=== PATIENT | male | born 1930 | race Caucasian/White ===

== ENCOUNTER → 2019-04-15 | Outpatient (CLI) | payer MEDICARE | LOC: M.RAD 14:29 | DX: M47.812 Spondylosis without myelopathy or radiculopathy, cervical region (principal); M25.711 Osteophyte, right shoulder; M43.12 Spondylolisthesis, cervical region ==

== ENCOUNTER 2020-02-21 11:29 | Inpatient (IN) | payer MEDICARE ==
[2020-02-21] VITALS (8 sets, daily range): BP systolic 100–169; BP diastolic 35–78
[~2020-02-21] VITALS: Ht 172.7 cm; Wt 64.6 kg
--- NOTE | ~2020-02-21 | CON ---
[address] [address] CONSULTATION Name: ANABELLA CARLSON Room: [address] IN [place].#: [id number] Admission: 02/21/20 Attend Phys: Fidel Finn Discharge: Date of : [birth year] Report #: [id number] THIS REPORT FOR: cc: Gian Suárez MD, Dean L. MD ~ Artie Bolanos MD DATE OF SERVICE: 02/24/2020 REQUESTING PHYSICIAN: Jagdish Jacques MD REASON FOR CONSULTATION: Acute kidney injury. HISTORY OF PRESENT ILLNESS: The patient is a very pleasant 89-year-old gentleman who was admitted to the hospital on 02/21/2020 with chief complaints of altered mental status. The patient was brought to the hospital with his . He was also was found to have melena, was diagnosed with a GI bleed, was seen by image consultant and GI had a procedure done, DrMelecio ____ performed cautery and placement of hemostatic clips in his duodenal bulb. His creatinine on admission was 1.4, went up to 1.5 yesterday, down to 1.3 now. PAST MEDICAL HISTORY: Significant for; 1. Chronic kidney disease stage 3. 2. History of anemia. 3. Gastrointestinal bleed. 4. Hypercholesterolemia. 5. Diabetes mellitus type 2. FAMILY HISTORY: Noncontributory. SOCIAL HISTORY: No tobacco, no alcohol abuse. REVIEW OF SYSTEMS: The patient wants to go home. No chest pain, no shortness of breath, no nausea, and no vomiting. His altered mental status, resolved. PHYSICAL EXAMINATION: GENERAL: Awake, alert, oriented, no acute distress. VITAL SIGNS: Stable. HEENT: Pupils are round. NECK: Supple. LUNGS: Clear. ASSESSMENT: 1. Chronic kidney disease, stage 3 with mild acute component [place] [address] CONSULTATION Name: ANABELLA CARLSON Room: [address]#: [id number] Admission: 02/21/20 Attend Phys: Fidel Finn Discharge: Date of : [birth year] Report #: [id number] 2. Gastrointestinal bleed, hemorrhage was stopped as I mentioned earlier. 3. Diabetes mellitus type 2. 4. General atherosclerosis. PLAN: There is nothing acute can offer here, but just keep the patient euvolemic and keeping away from JAYNA inhibitors and angiotensin receptor blockers. He will need to have a followup with us for chronic kidney disease, stage 3. I would like him to come and see me in office in 3 weeks after discharge. I will sign off. By: 1154 [id number] Bolanos MD /nt
[2020-02-21] MEDS ORDERED: FOSAMAX 70 MG T70 MG PO (11:45)
[2020-02-21] MEDS ORDERED: LIPITOR40 MG PO (11:46)
[2020-02-21] MEDS ORDERED: ASA81BEC PO (11:46)
[2020-02-21] MEDS ORDERED: CARBIDOPA/LEVODOPA PO (11:48)
[2020-02-21] MEDS ORDERED: CARB PO (11:49)
[2020-02-21] MEDS ORDERED: LEVO PO (11:49)
[2020-02-21] MEDS ORDERED: CARVEDILOL12.5 MG PO (11:49)
[2020-02-21] MEDS ORDERED: PROSCAR 5MG TABL5 M1 PO (11:50)
[2020-02-21] MEDS ORDERED: ARICEPT10 M1 PO (11:50)
[2020-02-21] MEDS ORDERED: NEURONTIN300 MG PO (11:50)
[2020-02-21] MEDS ORDERED: ALLEGRA ALLERG180 MG PO (11:51)
[2020-02-21] MEDS ORDERED: TAMSULOSIN HCL0.4 MG PO (11:51)
[2020-02-21] MEDS ORDERED: ZESTRIL5 MG PO (11:51)
[2020-02-21] MEDS ORDERED: METFORMIN HCL500 M3 PO (11:51)
[2020-02-21 11:56] LABS: MCH 31.1 pg (26.0-34.0); MCHC 34.1 g/dL (28.0-37.0); MPV 8.6 fl. (7.2-11.1); NUCLEATED RBCS 0 /100WBC; PLATELET COUNT* 151 thou/uL (150-400); RBC 1.86 mil/uL (4.50-6.00); RDW-CV 15.2 % (10.5-14.5); WBC 10.5 thou/uL (4.0-11.0)
[2020-02-21 12:06] LABS: CALCIUM 7.5 mg/dL (8.5-10.1); CREATININE 1.4 mg/dL (0.6-1.3); POTASSIUM 4.9 mmol/L (3.5-5.1)
[2020-02-21 12:08] LABS: HEMATOCRIT 16.9 % (42.0-52.0); HEMOGLOBIN 5.8 gm/dL (14.0-18.0)
[2020-02-21 12:09] LABS: APTT 21.1 Seconds (25.0-31.3); INR 1.2; PROTIME 12.6 Seconds (9.20-11.50)
[2020-02-21 12:19] LABS: ALBUMIN 2.6 g/dL (3.4-5.0); CK-MB MASS 2.2 ng/mL (<0.5-3.6); TOTAL BILIRUBIN 0.7 mg/dL (<0.1-1.0); TOTAL PROTEIN 4.6 g/dL (6.4-8.2)
[2020-02-21 12:21] LABS: ABSOLUTE LYMPHOCYTES 1.3 thou/uL (0.8-5.3); ABSOLUTE MONOCYTES 0.3 thou/uL (0.0-1.2); ABSOLUTE NEUTROPHILS 8.9 thou/uL (1.6-8.1); PLATELET ESTIMATE ADEQUATE
--- NOTE | 2020-02-21 13:41 | EKG ---
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: CCD : 1930 Requested By: Shubham Iraheta Order Number: [id number] MD: Milind León Measurements Intervals [place] Rate: 82 P: 50 WI: 149 QRS: 54 QRSD: 102 T: 59 QT: 397 QTc: 464 Interpretive Statements Sinus rhythm RSR' in V1 or V2, probably normal variant Probable left ventricular hypertrophy Compared to ECG 08/27/2010 16:14:10 RSR' in V1 or V2 now present Electronically Signed On 02-21-2020 13:41:34 CORONARY CARE UNIT NURSE by Milind León [email or web address] <ELECTRONICALLY SIGNED> By: Milind León MD, FACC 02/21/20 1341 1136 1136 Milind León MD, FACC /EPI
[2020-02-21 18:56] LABS: HEMATOCRIT 18.5 % (42.0-52.0); HEMOGLOBIN 6.1 gm/dL (14.0-18.0)
[2020-02-21 19:05] LABS: ALBUMIN 2.5 g/dL (3.4-5.0); CALCIUM 7.2 mg/dL (8.5-10.1); CREATININE 1.3 mg/dL (0.6-1.3); MAGNESIUM 1.3 mg/dL (1.8-2.4); POTASSIUM 4.2 mmol/L (3.5-5.1); TOTAL PROTEIN 4.6 g/dL (6.4-8.2)
[2020-02-21 20:58] LABS: BE -5.4 mmol/L (-2 to +3); PCO2 25.8 mmHg (35.0-45.0)
[2020-02-21 21:02] LABS: PO2 330.2 mmHg (75.0-100.0)
[2020-02-22] VITALS (13 sets, daily range): BP systolic 77–163; BP diastolic 30–70
[2020-02-22 01:15] LABS: HEMOGLOBIN 9.5 gm/dL (14.0-18.0)
[2020-02-22 04:21] LABS: HEMATOCRIT 23.9 % (42.0-52.0); HEMOGLOBIN 8.1 gm/dL (14.0-18.0)
[2020-02-22 05:14] LABS: HEMOGLOBIN 7.3 gm/dL (14.0-18.0)
[2020-02-22 17:23] LABS: HEMATOCRIT 21.1 % (42.0-52.0); MCH 30.1 pg (26.0-34.0); MCHC 33.9 g/dL (28.0-37.0); MCV 88.8 fL (80.0-100.0); MPV 9.5 fl. (7.2-11.1); RBC 2.37 mil/uL (4.50-6.00); WBC 14.8 thou/uL (4.0-11.0)
[2020-02-22 17:26] LABS: HEMOGLOBIN 7.1 gm/dL (14.0-18.0)
[2020-02-23 04:08] LABS: HEMATOCRIT 20.6 % (42.0-52.0); MCH 28.6 pg (26.0-34.0); MCV 86.5 fL (80.0-100.0); MPV 9.5 fl. (7.2-11.1); RBC 2.38 mil/uL (4.50-6.00); RDW-CV 17.1 % (10.5-14.5); WBC 13.8 thou/uL (4.0-11.0)
[2020-02-23 04:29] LABS: HEMOGLOBIN 6.8 gm/dL (14.0-18.0)
[2020-02-23 04:32] LABS: ALBUMIN 1.8 g/dL (3.4-5.0); CALCIUM 6.7 mg/dL (8.5-10.1); CREATININE 1.5 mg/dL (0.6-1.3); MAGNESIUM 2.7 mg/dL (1.8-2.4); TOTAL BILIRUBIN 0.4 mg/dL (<0.1-1.0); TOTAL PROTEIN 3.4 g/dL (6.4-8.2)
[2020-02-23 05:00] VITALS: BP 127/56; BP 131/55; BP 132/51; BP 135/57
[2020-02-23 08:00] VITALS: BP 132/51
[2020-02-23 12:26] VITALS: BP 120/49
[2020-02-23 16:39] VITALS: BP 128/58
[2020-02-23 19:30] VITALS: BP 116/49
[2020-02-23 22:23] LABS: URINE BILIRUBIN NEGATIVE (Negative); URINE BLOOD 2+ (Negative); URINE CLARITY CLEAR; URINE COLOR YELLOW; URINE GLUCOSE-RANDOM NEGATIVE (Negative); URINE KETONES NEGATIVE (Negative); URINE LEUKOCYTES 1+ (Negative); URINE NITRITE NEGATIVE (Negative); URINE PROTEIN NEGATIVE (Negative); URINE UROBILINOGEN 0.2 E.U./dl (0.2-1.0)
[2020-02-23 22:31] LABS: BACTERIA 1-9 Few /HPF (None Seen); CASTS None Seen /LPF (None Seen); CRYSTALS None Seen /LPF (None Seen); MUCUS None Seen strn/LPF (None Seen); SQUAMOUS NONE SEEN /LPF (0-3); URINE WBC 6-15 Few /HPF (0-5)
[2020-02-24] VITALS: BP 113/46
[2020-02-24 04:00] VITALS: BP 102/52
[2020-02-24 04:05] LABS: HEMATOCRIT 24.2 % (42.0-52.0); HEMOGLOBIN 8.2 gm/dL (14.0-18.0); MCH 28.1 pg (26.0-34.0); MCV 82.8 fL (80.0-100.0); MPV 9.5 fl. (7.2-11.1); RBC 2.93 mil/uL (4.50-6.00); RDW-CV 19.2 % (10.5-14.5); WBC 13.1 thou/uL (4.0-11.0)
[2020-02-24 04:48] LABS: ALBUMIN 1.9 g/dL (3.4-5.0); CALCIUM 6.8 mg/dL (8.5-10.1); CREATININE 1.3 mg/dL (0.6-1.3); POTASSIUM 3.2 mmol/L (3.5-5.1); TOTAL BILIRUBIN 0.5 mg/dL (<0.1-1.0); TOTAL PROTEIN 3.8 g/dL (6.4-8.2)
[2020-02-24 08:00] VITALS: BP 147/58
[2020-02-24 12:49] VITALS: BP 132/50
[2020-02-24 17:07] VITALS: BP 123/49
[2020-02-24 20:24] VITALS: BP 135/84
[2020-02-25] VITALS (7 sets, daily range): BP systolic 96–132; BP diastolic 41–56
[2020-02-25 04:52] LABS: HEMATOCRIT 23.3 % (42.0-52.0); HEMOGLOBIN 7.9 gm/dL (14.0-18.0); MCHC 33.7 g/dL (28.0-37.0); MCV 83.2 fL (80.0-100.0); MPV 9.4 fl. (7.2-11.1); RBC 2.81 mil/uL (4.50-6.00); RDW-CV 18.4 % (10.5-14.5); WBC 11.6 thou/uL (4.0-11.0)
[2020-02-25 05:04] LABS: CALCIUM 7.1 mg/dL (8.5-10.1); CREATININE 1.3 mg/dL (0.6-1.3); MAGNESIUM 2.1 mg/dL (1.8-2.4)
[2020-02-25 05:26] LABS: POTASSIUM 2.5 mmol/L (3.5-5.1)
[2020-02-26 00:30] VITALS: BP 96/49
[2020-02-26 04:00] VITALS: BP 141/42
[2020-02-26 10:17] LABS: ABSOLUTE EOSINOPHILS 0.6 thou/uL (0.0-0.7); ABSOLUTE LYMPHOCYTES 1.5 thou/uL (0.8-5.3); ABSOLUTE NEUTROPHILS 8.2 thou/uL (1.6-8.1); BASOPHILS 0.4 %; HEMATOCRIT 22.5 % (42.0-52.0); HEMOGLOBIN 7.5 gm/dL (14.0-18.0); LYMPHOCYTES 13.6 %; MCH 27.7 pg (26.0-34.0); MCHC 33.2 g/dL (28.0-37.0); MCV 83.6 fL (80.0-100.0); MONOCYTES 8.7 %; MPV 9.8 fl. (7.2-11.1); NUCLEATED RBCS 0 /100WBC; PLATELET COUNT* 93 thou/uL (150-400); POLYS 72.3 %; RBC 2.69 mil/uL (4.50-6.00); RDW-CV 18.5 % (10.5-14.5); WBC 11.3 thou/uL (4.0-11.0)
[2020-02-26 10:31] LABS: ALBUMIN 1.8 g/dL (3.4-5.0); CALCIUM 6.9 mg/dL (8.5-10.1); CREATININE 1.2 mg/dL (0.6-1.3); MAGNESIUM 1.7 mg/dL (1.8-2.4); POTASSIUM 4.1 mmol/L (3.5-5.1); TOTAL BILIRUBIN 0.5 mg/dL (<0.1-1.0); TOTAL PROTEIN 3.9 g/dL (6.4-8.2)
[2020-02-26 11:22] VITALS: BP 141/42
[2020-02-26 17:10] VITALS: BP 178/69
[2020-02-26 19:45] VITALS: BP 114/51
[2020-02-27] VITALS (7 sets, daily range): BP systolic 126–162; BP diastolic 38–68
[2020-02-27] MEDS ORDERED: OMEPRAZOLE40 MG PO (09:17)
[2020-02-28 03:30] VITALS: BP 164/63
[2020-02-28 04:26] LABS: ABSOLUTE BASOPHILS 0.1 thou/uL (0.0-0.2); ABSOLUTE EOSINOPHILS 0.6 thou/uL (0.0-0.7); ABSOLUTE LYMPHOCYTES 1.9 thou/uL (0.8-5.3); ABSOLUTE MONOCYTES 1.4 thou/uL (0.0-1.2); BASOPHILS 0.6 %; EOSINOPHILS 3.5 %; HEMATOCRIT 25.2 % (42.0-52.0); HEMOGLOBIN 8.5 gm/dL (14.0-18.0); LYMPHOCYTES 11.7 %; MCH 28.2 pg (26.0-34.0); MCHC 33.5 g/dL (28.0-37.0); MCV 84.2 fL (80.0-100.0); MONOCYTES 8.8 %; MPV 9.5 fl. (7.2-11.1); NUCLEATED RBCS 0 /100WBC; PLATELET COUNT* 158 thou/uL (150-400); POLYS 75.4 %; RDW-CV 17.9 % (10.5-14.5); WBC 15.9 thou/uL (4.0-11.0)
[2020-02-28 04:50] LABS: CALCIUM 7.9 mg/dL (8.5-10.1); CREATININE 1.3 mg/dL (0.6-1.3); POTASSIUM 3.4 mmol/L (3.5-5.1)
[2020-02-28 07:30] VITALS: BP 115/48
[2020-02-28 16:45] VITALS: BP 124/50
[2020-02-28 20:00] VITALS: BP 143/46
[2020-02-28 20:30] VITALS: BP 143/46
[2020-02-29] VITALS: BP 110/42
[2020-02-29 04:00] VITALS: BP 140/55
[2020-02-29 08:00] VITALS: BP 135/51
[2020-02-29 12:30] VITALS: BP 149/54
== END 2020-02-29 15:18 | DRG 356 ==
LOC: M.ERS 11:29 → M.TBA-ER 13:17 → M.2W 13:17
PROVIDERS: Family Medicine; Internal Medicine; Internal Medicine Gastroenterology; Surgery; ADMIT Internal Medicine; ATTEND Internal Medicine
PROC: 04L Lower Arteries, Occlusion (ICD-10-PCS; principal; 2020-02-21)
PROC: 30233N1 Transfusion of Nonautologous Red Blood Cells into Peripheral Vein, Percutaneous Approach (ICD-10-PCS; principal; 2020-02-21)
PROC: B4141ZZ Fluoroscopy of Superior Mesenteric Artery using Low Osmolar Contrast (ICD-10-PCS; principal; 2020-02-21)
PROC: B41F1ZZ Fluoroscopy of Right Lower Extremity Arteries using Low Osmolar Contrast (ICD-10-PCS; 2020-02-22)
PROC: B4181ZZ Fluoroscopy of Bilateral Renal Arteries using Low Osmolar Contrast (ICD-10-PCS; 2020-02-22)
PROC: B4101ZZ Fluoroscopy of Abdominal Aorta using Low Osmolar Contrast (ICD-10-PCS; 2020-02-22)
PROC: B41G1ZZ Fluoroscopy of Left Lower Extremity Arteries using Low Osmolar Contrast (ICD-10-PCS; 2020-02-22)
PROC: 04L Lower Arteries, Occlusion (ICD-10-PCS; 2020-02-22)
PROC: 30233K1 Transfusion of Nonautologous Frozen Plasma into Peripheral Vein, Percutaneous Approach (ICD-10-PCS; 2020-02-22)
PROC: 0W3P8ZZ Control Bleeding in Gastrointestinal Tract, Via Natural or Artificial Opening Endoscopic (ICD-10-PCS; 2020-02-22)
DX: K92.1 Melena (principal); N17.0 Acute kidney failure with tubular necrosis; D62 Acute posthemorrhagic anemia; G20 Parkinson's disease; N18.30 Chronic kidney disease, stage 3 unspecified; E11.22 Type 2 diabetes mellitus with diabetic chronic kidney disease; E78.00 Pure hypercholesterolemia, unspecified; K59.00 Constipation, unspecified; I70.90 Unspecified atherosclerosis; N21.0 Calculus in bladder; T39.395A Adverse effect of other nonsteroidal anti-inflammatory drugs [NSAID], initial encounter; I95.9 Hypotension, unspecified; D64.9 Anemia, unspecified; Z20.822 Contact with and (suspected) exposure to COVID-19; Z79.84 Long term (current) use of oral hypoglycemic drugs; Z79.899 Other long term (current) drug therapy; Z79.82 Long term (current) use of aspirin; Y92.9 Unspecified place or not applicable

== ENCOUNTER 2021-03-05 19:55 | Emergency (ER) | payer MEDICARE ==
[~2021-03-05] VITALS: Ht 170.2 cm; Wt 54.4 kg
[~2021-03-05 19:55] MED LIST: ALLEGRA ALLERG180 MG PO; ARICEPT10 M1 PO; ASA81BEC PO; CARB PO; CARBIDOPA/LEVODOPA PO; CARVEDILOL12.5 MG PO; FOSAMAX 70 MG T70 MG PO; LEVO PO; LIPITOR40 MG PO; METFORMIN HCL500 M3 PO; NEURONTIN300 MG PO; OMEPRAZOLE40 MG PO; PROSCAR 5MG TABL5 M1 PO; TAMSULOSIN HCL0.4 MG PO; ZESTRIL5 MG PO
[2021-03-05] MEDS ORDERED: VITAMIN C500 M2 PO (20:06)
[2021-03-05] MEDS ORDERED: IRON18 M1 PO (20:06)
[2021-03-05] MEDS ORDERED: VITAMIN D310 MC2 PO (20:07)
[2021-03-05] MEDS ORDERED: SUPER THERAVIT1 EACH PO (20:07)
[2021-03-05] MEDS ORDERED: VITAMIN B-121000 MC2 SUBLING (20:07)
[2021-03-05] MEDS ORDERED: REMERON15 M2 PO (20:08)
[2021-03-05 20:51] LABS: ABSOLUTE BASOPHILS 0.1 thou/uL (0.0-0.2); ABSOLUTE EOSINOPHILS 0.2 thou/uL (0.0-0.7); ABSOLUTE LYMPHOCYTES 1.8 thou/uL (0.8-5.3); ABSOLUTE MONOCYTES 0.6 thou/uL (0.0-1.2); ABSOLUTE NEUTROPHILS 3.9 thou/uL (1.6-8.1); BASOPHILS 0.9 %; EOSINOPHILS 2.5 %; HEMATOCRIT 32.7 % (42.0-52.0); HEMOGLOBIN 11.1 gm/dL (14.0-18.0); LYMPHOCYTES 27.4 %; MCH 33.1 pg (26.0-34.0); MCHC 33.9 g/dL (28.0-37.0); MCV 97.7 fL (80.0-100.0); MONOCYTES 9.4 %; MPV 8.8 fl. (7.2-11.1); NUCLEATED RBCS 0 /100WBC; PLATELET COUNT* 177 thou/uL (150-400); POLYS 59.8 %; RBC 3.34 mil/uL (4.50-6.00); RDW-CV 13.2 % (10.5-14.5); WBC 6.6 thou/uL (4.0-11.0)
[2021-03-05 20:57] LABS: CALCIUM 8.1 mg/dL (8.5-10.1); CREATININE 1.3 mg/dL (0.6-1.3); POTASSIUM 4.1 mmol/L (3.5-5.1)
[2021-03-05 21:14] LABS: ALBUMIN 3.1 g/dL (3.4-5.0); MAGNESIUM 1.3 mg/dL (1.8-2.4); TOTAL BILIRUBIN 0.2 mg/dL (<0.1-1.0); TOTAL PROTEIN 5.8 g/dL (6.4-8.2)
[2021-03-05 21:39] LABS: BE -1.7 mmol/L (-2 to +3); pH 7.405 (7.340-7.450)
[2021-03-05 21:47] LABS: URINE BILIRUBIN NEGATIVE (Negative); URINE BLOOD NEGATIVE (Negative); URINE CLARITY CLEAR; URINE COLOR YELLOW; URINE GLUCOSE-RANDOM 1+ (Negative); URINE KETONES NEGATIVE (Negative); URINE LEUKOCYTES-REFLEX NEGATIVE (Negative); URINE NITRITE-REFLEX NEGATIVE (Negative); URINE PROTEIN NEGATIVE (Negative); URINE UROBILINOGEN 0.2 E.U./dl (0.2-1.0)
[2021-03-06 00:54] VITALS: BP 98/50
--- NOTE | 2021-03-06 09:20 | EKG ---
[place] [address] ELECTROCARDIOGRAM REPORT Name: ALDOANABELLA Room: [facility]#: [id number] Admission: 03/05/21 Attend Phys: Discharge: 03/06/21 Date of : [birth year] Date of Service: 03/05/212002 Report #: [id number] THIS REPORT FOR: //name// 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: : 1930 Requested By: Gunjan Layton Order Number: [id number] MD: Jimi Salgado Measurements Intervals [place] Rate: 78 P: 70 VA: 136 QRS: 38 QRSD: 95 T: 71 QT: 368 QTc: 420 Interpretive Statements Sinus rhythm PAC Probable left ventricular hypertrophy High ST segment most compatible with early repolarization and normal variant Compared to ECG 02/21/2020 11:36:16 PAC is noted Electronically Signed On 03-06-2021 9:19:50 [employer]EMMER [employer] by Jimi Salgado [email or web address] <ELECTRONICALLY SIGNED> By: Jimi Salgado MD, FACC 03/06/21 0919 02 02 Jimi Salgado MD, FAC /EPI
== END 2021-03-06 00:55 | disposition home or self-care (01) ==
LOC: M.ERS 19:55
PROVIDERS: Personal Emergency Response Attendant
DX: E11.65 Type 2 diabetes mellitus with hyperglycemia (principal); E83.42 Hypomagnesemia; R53.83 Other fatigue; R19.7 Diarrhea, unspecified; K90.0 Celiac disease; R35.0 Frequency of micturition; G20 Parkinson's disease; I10 Essential (primary) hypertension; E11.9 Type 2 diabetes mellitus without complications; Z79.899 Other long term (current) drug therapy; Z95.818 Presence of other cardiac implants and grafts; Z79.82 Long term (current) use of aspirin